=== PATIENT | male | born 1985 | race Caucasian/White ===

== ENCOUNTER 2019-02-22 01:29 | Emergency (ER) | payer SELFPAY ==
[2019-02-22 01:30] VITALS: BP 121/92
--- NOTE | 2019-02-22 01:34 | ER Report ---
History and Physical Time Seen By MD: 01:27 Hx. of Stated Complaint: DETENTION CLEANANCE HPI/ROS CHIEF COMPLAINT: Intermediate clearance HISTORY OF PRESENT ILLNESS: 33-year-old male brought in by police for care home clearance. Patient voices no complaints. He voices no past specific medical history. Patient has slurred speech consistent with alcohol intoxication. REVIEW OF SYSTEMS: Respiratory: No cough, no dyspnea. Cardiovascular: No chest pain, no palpitations. Gastrointestinal: No vomiting, no abdominal pain. Musculoskeletal: No back pain. Allergies: Coded Allergies: No Known Drug Allergies (Unverified , 02/22/19) Home Meds No Active Prescriptions or Reported Meds Reviewed Nurses Notes: Yes Old Medical Records Reviewed: Yes Constitutional Vital Sign - Last 24 Hours 02/22/19 01:30 Temp 98.8 Pulse 118 Resp 14 B/P (MAP) 121/92 Pulse Ox 90 O2 Delivery Room Air Physical Exam General Appearance: The patient is alert, has no immediate need for airway protection and no current signs of toxicity. Palpation of the head and neck reveals no tenderness or trauma HEENT: Pupils equal and round no injection. PERRLA, EOMI, oropharynx without dental trauma, facial bones intact on palpation Respiratory: Chest is non tender, lungs are clear to auscultation. No chest wall tenderness Cardiac: regular rate and rhythm Gastrointestinal: Abdomen is soft and non tender, no masses, bowel sounds normal. Musculoskeletal: Neck: Neck is supple and non tender. Extremities have full range of motion and are non tender. No evidence of trauma Skin: No rashes or lesions. DIFFERENTIAL DIAGNOSIS: After history and physical exam differential diagnosis was considered for alcohol intoxication, care home clearance, polysubstance abuse Medical Decision Making ED Course/Re-evaluation ED Course Patient was admitted to an examination room. H&P was done. The differential diagnoses was considered. On clinical examination. Patient has no findings. He has stable vital signs. He voices no complaints. There are no findings on clinical examination to suggest other concerns. Patient's medically cleared for care home admission. Decision to Disposition Date: Feb 22, 2019 Decision to Disposition Time: 01:34 Depart Departure Latest Vital Signs Vital Signs Date Time Temp Pulse Resp B/P (MAP) Pulse Ox O2 Delivery O2 Flow Rate FiO2 02/22/19 01:30 98.8 118 14 121/92 90 Room Air Impression: Primary Impression: Medical clearance for incarceration Additional Impression: Alcohol intoxication Condition: Improved Disposition: [facility] TO DETENTION/CORRECTIONAL F New Scripts No Active Prescriptions or Reported Meds Patient Instructions: Alcohol Intoxication (ED) Additional Instructions: Patient's medically cleared for care home admission. Problem Qualifiers Additional Impression: Alcohol intoxication Complication of substance-induced condition: uncomplicated Qualified Codes: F10.920 - Alcohol use, unspecified with intoxication, uncomplicated IDANIA ESTRADA DO Feb 22, 2019 01:34
== END 2019-02-22 01:32 ==
LOC: ER 01:32
DX: F10.920 Alcohol use, unspecified with intoxication, uncomplicated (principal)
CPT/HCPCS: 99281